=== PATIENT | male | born 1940 | race Caucasian/White ===

== ENCOUNTER 2017-04-17 15:36 | Outpatient (CLI) | payer OTHER | END 2017-04-17 17:20 | disposition home or self-care (01) | LOC: SRD 15:36 | PROVIDERS: ATTEND Internal Medicine | DX: I51.7 Cardiomegaly (principal); I70.0 Atherosclerosis of aorta; Z95.2 Presence of prosthetic heart valve | CPT/HCPCS: 71046-TC ==

== ENCOUNTER 2018-01-06 11:44 | Emergency (ER) | payer OTHER ==
[~2018-01-06] VITALS: Ht 172.7 cm; Wt 97.1 kg
[2018-01-06 11:58] VITALS: BP_SYST 152
[2018-01-06] MEDS ORDERED: ONDANSETRON 4 MG ODT TAB PO ONE (15:45)
[2018-01-06 16:03] LABS: BASOPHILS # (AUTO) 0.1 K/uL (0.0-0.2); HEMOGLOBIN 12.8 g/dL (14.0-18.0); LYMPHOCYTES # (AUTO) 1.2 K/uL (1.0-5.5); MEAN CORPUSCULAR HGB CONC 33 % (32-36); MEAN CORPUSCULAR VOLUME 94 fL (79.0-98.0); MONOCYTES # (AUTO) 0.5 K/uL (0.0-1.0)
[2018-01-06 16:10] LABS: EOSINOPHILS # (AUTO) 0.4 K/uL (0.0-0.4); EOSINOPHILS % (AUTO) 5.8 % (0.0-4.0); HEMATOCRIT 38.5 % (36-54); LYMPHOCYTES % (AUTO) 18.5 % (20.5-51.5); MEAN CORPUSCULAR HEMOGLOBIN 31 pg (27-31); MONOCYTES % (AUTO) 7.3 % (1.7-9.3); NEUTROPHILS # (AUTO) 4.3 K/uL (1.8-7.7); NEUTROPHILS % (AUTO) 67.4 % (40.0-70.0); PLATELET COUNT (AUTO) 113 K/uL (130-430); RED CELL DISTRIBUTION WIDTH 12.9 % (9.0-15.0); WHITE BLOOD COUNT (AUTO) 6.5 K/uL (4.8-10.8)
[2018-01-06 16:15] LABS: ANION GAP 4 (5-15); CALCIUM 9.1 mg/dL (8.4-11.0); CHLORIDE 104 mmol/L (98-107); CREATININE 1.38 mg/dL (0.55-1.30); GLUCOSE 86 mg/dL (70-99); POTASSIUM 3.9 mmol/L (3.5-5.1); SODIUM SERUM 138 mmol/L (136-145); UREA NITROGEN, BLOOD 21 mg/dL (8-21)
[2018-01-06 16:19] LABS: ALANINE AMINOTRANSFERASE 21 U/L (12-78); ALBUMIN 3.9 g/dL (3.4-4.8); ASPARTATE AMINOTRANSFERASE 14 U/L (10-37); LIPASE 279 U/L (73-393); TOTAL BILIRUBIN 1.6 mg/dL (0.0-1.0)
[2018-01-06] MEDS ORDERED: GABA-531 PO (17:00)
[2018-01-06] MEDS ORDERED: TAMS-11 PO (17:00)
[2018-01-06] MEDS ORDERED: METF1000 PO (17:00)
[2018-01-06] MEDS ORDERED: GLIP10TA PO (17:00)
[2018-01-06] MEDS ORDERED: CARV3.1246 PO (17:00)
[2018-01-06] MEDS ORDERED: POTA20TA83 PO (17:00)
[2018-01-06] MEDS ORDERED: SIMV40TA2 PO (17:00)
[2018-01-06] MEDS ORDERED: OLME40TA18 PO (17:00)
[2018-01-06] MEDS ORDERED: SPIR25TA6 PO (17:00)
[2018-01-06] MEDS ORDERED: WARF5TAB2 PO (17:00)
[2018-01-06 17:17] LABS: INR 2.3 (0.80-1.20); PROTHROMBIN TIME 22.1 SECS (9.5-12.5)
[2018-01-06 17:50] VITALS: BP_SYST 134
== END 2018-01-06 18:00 | disposition home or self-care (01) ==
LOC: SED 11:44
DX: R04.2 Hemoptysis (principal); E11.9 Type 2 diabetes mellitus without complications; I10 Essential (primary) hypertension; E78.5 Hyperlipidemia, unspecified; I48.91 Unspecified atrial fibrillation; Z85.46 Personal history of malignant neoplasm of prostate; Z98.890 Other specified postprocedural states; Z87.891 Personal history of nicotine dependence
CPT/HCPCS: 36415; 71045; 80053; 82962; 83690; 84484; 85025; 85610; 85730; 93005; 99285; Q0162

== ENCOUNTER 2018-04-23 12:15 | Outpatient (CLI) | payer OTHER ==
[~2018-04-23 12:15] MED LIST: CARV3.1246 PO; GABA-531 PO; GLIP10TA PO; METF1000 PO; OLME40TA18 PO; POTA20TA83 PO; SIMV40TA2 PO; SPIR25TA6 PO; TAMS-11 PO; WARF5TAB2 PO
== END 2018-04-23 21:31 | disposition home or self-care (01) ==
LOC: SRD 12:15
PROVIDERS: ATTEND Internal Medicine
DX: M17.12 Unilateral primary osteoarthritis, left knee (principal); I70.202 Unspecified atherosclerosis of native arteries of extremities, left leg
CPT/HCPCS: 73564

== ENCOUNTER 2019-08-01 15:36 | Inpatient (IN) | payer OTHER ==
[~2019-08-01] VITALS: Ht 175.3 cm; Wt 93.9 kg
[2019-08-01 15:36] VITALS: BP_SYST 132
[2019-08-01] MEDS ORDERED: NACL 0.9% 1,000 ML IV ONE (16:11)
[2019-08-01] MEDS ORDERED: MORPHINE 4 MG/ML INJ. SYRINGE IVP ONE ×3 (16:15→21:15)
[2019-08-01] MEDS ORDERED: ONDANSETRON HCL 4 MG/2 ML VIAL IVP ONE (16:15)
[2019-08-01 16:56] LABS: BASOPHILS % (AUTO) 0.3 % (0.0-2.0); EOSINOPHILS % (AUTO) 0.3 % (0.0-4.0); HEMATOCRIT 34.4 % (36-54); HEMOGLOBIN 11.2 g/dL (14.0-18.0); LYMPHOCYTES # (AUTO) 0.4 K/uL (1.0-5.5); MEAN CORPUSCULAR HEMOGLOBIN 29 pg (27-31); MEAN CORPUSCULAR HGB CONC 33 % (32-36); MEAN CORPUSCULAR VOLUME 88 fL (79.0-98.0); MONOCYTES # (AUTO) 0.6 K/uL (0.0-1.0); MONOCYTES % (AUTO) 8.9 % (1.7-9.3); NEUTROPHILS # (AUTO) 5.7 K/uL (1.8-7.7); NEUTROPHILS % (AUTO) 84.5 % (40.0-70.0); PLATELET COUNT (AUTO) 119 K/uL (130-430); RED BLOOD CELL COUNT(AUTO) 3.89 MIL/uL (4.2-6.2); RED CELL DISTRIBUTION WIDTH 13.6 % (9.0-15.0); WHITE BLOOD COUNT (AUTO) 6.7 K/uL (4.8-10.8)
[2019-08-01 17:08] LABS: ANION GAP 14 (5-15); CALCIUM 8.1 mg/dL (8.4-11.0); CHLORIDE 102 mmol/L (98-107); CREATININE 1.77 mg/dL (0.55-1.30); GLUCOSE 217 mg/dL (70-99); POTASSIUM 4.1 mmol/L (3.5-5.1); SODIUM SERUM 137 mmol/L (136-145); UREA NITROGEN, BLOOD 50 mg/dL (8-21)
[2019-08-01 17:14] LABS: ALANINE AMINOTRANSFERASE 20 U/L (12-78); ALBUMIN 2.7 g/dL (3.4-4.8); ASPARTATE AMINOTRANSFERASE 14 U/L (10-37); TOTAL BILIRUBIN 0.9 mg/dL (0.0-1.0)
[2019-08-01 17:24] LABS: BILIRUBIN,URINE 1+ (NEGATIVE); BLOOD, URINE 2+ (NEGATIVE); COLOR,URINE YELLOW (YELLOW); GLUCOSE,URINE NEGATIVE (NEGATIVE); KETONES,URINE 1+ (NEGATIVE); LEUKOCYTE ESTERASE ,URINE NEGATIVE (NEGATIVE); NITRITE, URINE NEGATIVE (NEGATIVE); PH,URINE 5.5 (5.0-8.0); PROTEIN URINE 1+ (NEGATIVE)
[2019-08-01 17:26] LABS: CLARITY/URINE SLIGHTLY HAZY (CLEAR)
[2019-08-01] MEDS ORDERED: HYDR25TA4 PO (17:28)
[2019-08-01] MEDS ORDERED: ASA81 PO (17:28)
[2019-08-01] MEDS ORDERED: LOSA100T3 PO (17:28)
[2019-08-01 17:43] LABS: INR > 9.0 (0.80-1.20)
[2019-08-01 17:49] LABS: BACTERIA,URINE FEW /HPF (None Seen)
[2019-08-01 17:50] LABS: COARSE GRANULAR CASTS,URINE 0-10 /LPF (None Seen); MUCUS,URINE 1+ /LPF (None Seen)
[2019-08-01 17:51] LABS: URINE AMORPHOUS URATE 2+ /HPF (None Seen)
[2019-08-01] MEDS ORDERED: ONDANSETRON HCL 4 MG/2 ML VIAL IVP PRN (21:45)
[2019-08-01] MEDS ORDERED: ALBUTEROL SULFATE 0.083% 2.5 MG/3 ML VIAL.NEB INH PRN (21:45)
[2019-08-01] MEDS: cefTRIAXone 1 GM IVPB PREMIX 50 ML IV SCH (22:25)
[2019-08-02 00:41] VITALS: BP_SYST 118
[2019-08-02 07:45] LABS: BASOPHILS % (AUTO) 0.3 % (0.0-2.0); EOSINOPHILS % (AUTO) 0.4 % (0.0-4.0); HEMATOCRIT 31.5 % (36-54); HEMOGLOBIN 10.5 g/dL (14.0-18.0); LYMPHOCYTES # (AUTO) 0.7 K/uL (1.0-5.5); LYMPHOCYTES % (AUTO) 9.5 % (20.5-51.5); MEAN CORPUSCULAR HEMOGLOBIN 29 pg (27-31); MEAN CORPUSCULAR HGB CONC 33 % (32-36); MEAN CORPUSCULAR VOLUME 88 fL (79.0-98.0); MONOCYTES # (AUTO) 0.7 K/uL (0.0-1.0); MONOCYTES % (AUTO) 9.9 % (1.7-9.3); NEUTROPHILS # (AUTO) 5.8 K/uL (1.8-7.7); NEUTROPHILS % (AUTO) 79.9 % (40.0-70.0); PLATELET COUNT (AUTO) 104 K/uL (130-430); RED BLOOD CELL COUNT(AUTO) 3.58 MIL/uL (4.2-6.2); RED CELL DISTRIBUTION WIDTH 14.1 % (9.0-15.0); WHITE BLOOD COUNT (AUTO) 7.3 K/uL (4.8-10.8)
[2019-08-02 08:00] VITALS: BP_SYST 104
[2019-08-02 08:12] LABS: ALANINE AMINOTRANSFERASE 22 U/L (12-78); ALBUMIN 2.5 g/dL (3.4-4.8); ANION GAP 9 (5-15); ASPARTATE AMINOTRANSFERASE 16 U/L (10-37); CALCIUM 8.1 mg/dL (8.4-11.0); CHLORIDE 103 mmol/L (98-107); GLUCOSE 182 mg/dL (70-99); POTASSIUM 4.3 mmol/L (3.5-5.1); SODIUM SERUM 137 mmol/L (136-145); TOTAL BILIRUBIN 0.6 mg/dL (0.0-1.0); UREA NITROGEN, BLOOD 58 mg/dL (8-21)
[2019-08-02 08:20] VITALS: BP_SYST 104
[2019-08-02 09:13] LABS: INR > 9.0 (0.80-1.20)
[2019-08-02] MEDS ORDERED: PHYTONADIONE 10 MG/ML AMP SUBCUT ONE (10:00)
[2019-08-02] MEDS: HYDROCHLOROTHIAZIDE 25 MG TABLET (HCTZ) PO SCH (10:22)
[2019-08-02] MEDS: GABAPENTIN 300 MG CAPSULE PO SCH ×3 (10:22→22:48)
[2019-08-02] MEDS: SPIRONOLACTONE 25 MG TABLET (ALDACTONE) PO SCH (10:23)
[2019-08-02] MEDS: LOSARTAN POTASSIUM 50 MG TABLET (COZAAR) PO SCH (10:24)
[2019-08-02] MEDS: CARVEDILOL 3.125 MG TABLET (COREG) PO SCH ×2 (10:24→21:00)
[2019-08-02] MEDS: INSULIN REGULAR, HUMAN 100 UNITS/ML, 10 ML VIAL (humuLIN R) SUBCUT PRN ×3 (12:14→23:22)
[2019-08-02] MEDS: MORPHINE 4 MG/ML INJ. SYRINGE IVP PRN (12:25)
[2019-08-02 12:39] VITALS: BP_SYST 112
[2019-08-02] MEDS: TAMSULOSIN HCL 0.4 MG CAP PO SCH (17:03)
[2019-08-02] MEDS: SIMVASTATIN 40 MG TABLET PO SCH (17:03)
[2019-08-02 17:08] VITALS: BP_SYST 96
[2019-08-02 20:00] VITALS: BP_SYST 86
[2019-08-02] MEDS: cefTRIAXone 1 GM IVPB PREMIX 50 ML IV SCH (22:49)
[2019-08-03 02:21] VITALS: BP_SYST 132
[2019-08-03] MEDS: INSULIN REGULAR, HUMAN 100 UNITS/ML, 10 ML VIAL (humuLIN R) SUBCUT PRN ×4 (07:20→21:53)
[2019-08-03 08:00] VITALS: BP_SYST 106
[2019-08-03] MEDS: MORPHINE 4 MG/ML INJ. SYRINGE IVP PRN (08:36)
[2019-08-03] MEDS: GABAPENTIN 300 MG CAPSULE PO SCH ×3 (09:48→21:42)
[2019-08-03] MEDS: LOSARTAN POTASSIUM 50 MG TABLET (COZAAR) PO SCH (09:50)
[2019-08-03] MEDS: SPIRONOLACTONE 25 MG TABLET (ALDACTONE) PO SCH (09:50)
[2019-08-03] MEDS: CARVEDILOL 3.125 MG TABLET (COREG) PO SCH ×2 (09:51→21:41)
[2019-08-03] MEDS: HYDROCHLOROTHIAZIDE 25 MG TABLET (HCTZ) PO SCH (09:52)
[2019-08-03 11:58] LABS: BASOPHILS % (AUTO) 0.3 % (0.0-2.0); EOSINOPHILS # (AUTO) 0.1 K/uL (0.0-0.4); EOSINOPHILS % (AUTO) 1.8 % (0.0-4.0); HEMATOCRIT 30.7 % (36-54); HEMOGLOBIN 10.2 g/dL (14.0-18.0); LYMPHOCYTES # (AUTO) 0.6 K/uL (1.0-5.5); MEAN CORPUSCULAR HEMOGLOBIN 30 pg (27-31); MEAN CORPUSCULAR HGB CONC 33 % (32-36); MEAN CORPUSCULAR VOLUME 89 fL (79.0-98.0); MONOCYTES # (AUTO) 0.5 K/uL (0.0-1.0); MONOCYTES % (AUTO) 9.4 % (1.7-9.3); NEUTROPHILS # (AUTO) 4.5 K/uL (1.8-7.7); NEUTROPHILS % (AUTO) 77.5 % (40.0-70.0); PLATELET COUNT (AUTO) 105 K/uL (130-430); RED BLOOD CELL COUNT(AUTO) 3.44 MIL/uL (4.2-6.2); RED CELL DISTRIBUTION WIDTH 13.5 % (9.0-15.0); WHITE BLOOD COUNT (AUTO) 5.8 K/uL (4.8-10.8)
[2019-08-03 12:00] VITALS: BP_SYST 109
[2019-08-03 12:06] LABS: ANION GAP 7 (5-15); CALCIUM 7.8 mg/dL (8.4-11.0); CHLORIDE 98 mmol/L (98-107); CREATININE 2.26 mg/dL (0.55-1.30); GLUCOSE 314 mg/dL (70-99); POTASSIUM 4.4 mmol/L (3.5-5.1); SODIUM SERUM 132 mmol/L (136-145); UREA NITROGEN, BLOOD 68 mg/dL (8-21)
[2019-08-03 12:12] LABS: ALANINE AMINOTRANSFERASE 23 U/L (12-78); ALBUMIN 2.4 g/dL (3.4-4.8); ASPARTATE AMINOTRANSFERASE 21 U/L (10-37); TOTAL BILIRUBIN 0.7 mg/dL (0.0-1.0)
[2019-08-03 12:38] LABS: INR 2.3 (0.80-1.20); PROTHROMBIN TIME 22.5 SECS (9.5-12.5)
[2019-08-03 16:43] VITALS: BP_SYST 100
[2019-08-03] MEDS: TAMSULOSIN HCL 0.4 MG CAP PO SCH (17:43)
[2019-08-03] MEDS: SIMVASTATIN 40 MG TABLET PO SCH (17:43)
[2019-08-03] MEDS: cefTRIAXone 1 GM IVPB PREMIX 50 ML IV SCH (21:40)
[2019-08-04 01:18] VITALS: BP_SYST 100
[2019-08-04] MEDS: INSULIN REGULAR, HUMAN 100 UNITS/ML, 10 ML VIAL (humuLIN R) SUBCUT PRN ×4 (06:26→21:28)
[2019-08-04 07:23] LABS: BASOPHILS % (AUTO) 0.4 % (0.0-2.0); EOSINOPHILS # (AUTO) 0.1 K/uL (0.0-0.4); EOSINOPHILS % (AUTO) 1.7 % (0.0-4.0); HEMATOCRIT 31.9 % (36-54); HEMOGLOBIN 10.7 g/dL (14.0-18.0); LYMPHOCYTES # (AUTO) 0.7 K/uL (1.0-5.5); LYMPHOCYTES % (AUTO) 11.1 % (20.5-51.5); MEAN CORPUSCULAR HEMOGLOBIN 29 pg (27-31); MEAN CORPUSCULAR HGB CONC 34 % (32-36); MEAN CORPUSCULAR VOLUME 87 fL (79.0-98.0); MONOCYTES # (AUTO) 0.6 K/uL (0.0-1.0); MONOCYTES % (AUTO) 9.1 % (1.7-9.3); NEUTROPHILS # (AUTO) 4.9 K/uL (1.8-7.7); NEUTROPHILS % (AUTO) 77.7 % (40.0-70.0); PLATELET COUNT (AUTO) 120 K/uL (130-430); RED BLOOD CELL COUNT(AUTO) 3.65 MIL/uL (4.2-6.2); RED CELL DISTRIBUTION WIDTH 13.7 % (9.0-15.0); WHITE BLOOD COUNT (AUTO) 6.2 K/uL (4.8-10.8)
[2019-08-04 07:35] LABS: INR 1.5 (0.80-1.20); PROTHROMBIN TIME 14.8 SECS (9.5-12.5)
[2019-08-04 07:52] LABS: ALANINE AMINOTRANSFERASE 28 U/L (12-78); ALBUMIN 2.5 g/dL (3.4-4.8); ANION GAP 9 (5-15); ASPARTATE AMINOTRANSFERASE 20 U/L (10-37); CALCIUM 8.1 mg/dL (8.4-11.0); CHLORIDE 98 mmol/L (98-107); CREATININE 1.97 mg/dL (0.55-1.30); GLUCOSE 258 mg/dL (70-99); POTASSIUM 3.9 mmol/L (3.5-5.1); SODIUM SERUM 132 mmol/L (136-145); TOTAL BILIRUBIN 0.7 mg/dL (0.0-1.0); UREA NITROGEN, BLOOD 61 mg/dL (8-21)
[2019-08-04 08:13] LABS: FREE PSA <0.02 ng/mL; PROSTATE SPECIFIC AG TOTAL <0.1 ng/mL (0.0-4.0)
[2019-08-04 08:22] VITALS: BP_SYST 115
[2019-08-04] MEDS: GABAPENTIN 300 MG CAPSULE PO SCH ×3 (09:40→21:24)
[2019-08-04] MEDS: LOSARTAN POTASSIUM 50 MG TABLET (COZAAR) PO SCH (09:41)
[2019-08-04] MEDS: CARVEDILOL 3.125 MG TABLET (COREG) PO SCH ×2 (09:42→22:23)
[2019-08-04] MEDS: SPIRONOLACTONE 25 MG TABLET (ALDACTONE) PO SCH (09:42)
[2019-08-04] MEDS: HYDROCHLOROTHIAZIDE 25 MG TABLET (HCTZ) PO SCH (09:43)
[2019-08-04 10:02] VITALS: BP_SYST 115
[2019-08-04 12:15] VITALS: BP_SYST 120
[2019-08-04] MEDS ORDERED: WARFARIN SODIUM 5 MG TABLET PO ONE (15:45)
[2019-08-04] MEDS: HYDROcodone/ACETAMIN 5-325 MG TAB (NORCO/ VICODIN) PO PRN (16:15)
[2019-08-04] MEDS: SIMVASTATIN 40 MG TABLET PO SCH (16:15)
[2019-08-04] MEDS: TAMSULOSIN HCL 0.4 MG CAP PO SCH (16:16)
[2019-08-04 16:18] VITALS: BP_SYST 117
[2019-08-04 20:00] VITALS: BP_SYST 90
[2019-08-04] MEDS: cefTRIAXone 1 GM IVPB PREMIX 50 ML IV SCH (21:29)
[2019-08-04] MEDS: MORPHINE 4 MG/ML INJ. SYRINGE IVP PRN (22:25)
[2019-08-05 00:58] VITALS: BP_SYST 113
[2019-08-05] MEDS: INSULIN REGULAR, HUMAN 100 UNITS/ML, 10 ML VIAL (humuLIN R) SUBCUT PRN ×4 (06:43→20:54)
[2019-08-05 08:08] VITALS: BP_SYST 93
[2019-08-05] MEDS: HYDROCHLOROTHIAZIDE 25 MG TABLET (HCTZ) PO SCH (09:00)
[2019-08-05] MEDS: LOSARTAN POTASSIUM 50 MG TABLET (COZAAR) PO SCH (09:00)
[2019-08-05] MEDS: SPIRONOLACTONE 25 MG TABLET (ALDACTONE) PO SCH (09:00)
[2019-08-05] MEDS: GABAPENTIN 300 MG CAPSULE PO SCH ×3 (09:05→20:49)
[2019-08-05] MEDS: CARVEDILOL 3.125 MG TABLET (COREG) PO SCH ×2 (09:06→20:49)
[2019-08-05 12:15] VITALS: BP_SYST 99
[2019-08-05 16:13] VITALS: BP_SYST 94
[2019-08-05] MEDS: TAMSULOSIN HCL 0.4 MG CAP PO SCH (17:46)
[2019-08-05] MEDS: SIMVASTATIN 40 MG TABLET PO SCH (17:46)
[2019-08-05 19:50] VITALS: BP_SYST 107
[2019-08-05] MEDS: cefTRIAXone 1 GM IVPB PREMIX 50 ML IV SCH (20:58)
[2019-08-06 00:21] VITALS: BP_SYST 113
[2019-08-06] MEDS: INSULIN REGULAR, HUMAN 100 UNITS/ML, 10 ML VIAL (humuLIN R) SUBCUT PRN ×4 (06:05→20:51)
[2019-08-06 08:00] VITALS: BP_SYST 108
[2019-08-06] MEDS: CARVEDILOL 3.125 MG TABLET (COREG) PO SCH ×2 (08:11→20:42)
[2019-08-06] MEDS: GABAPENTIN 300 MG CAPSULE PO SCH ×3 (08:11→20:41)
[2019-08-06] MEDS: HYDROCHLOROTHIAZIDE 25 MG TABLET (HCTZ) PO SCH (09:00)
[2019-08-06] MEDS: LOSARTAN POTASSIUM 50 MG TABLET (COZAAR) PO SCH (09:00)
[2019-08-06] MEDS: SPIRONOLACTONE 25 MG TABLET (ALDACTONE) PO SCH (09:00)
[2019-08-06] MEDS ORDERED: WARFARIN SODIUM 5 MG TABLET PO ONE (11:45)
[2019-08-06 12:25] LABS: BASOPHILS % (AUTO) 0.3 % (0.0-2.0); EOSINOPHILS # (AUTO) 0.1 K/uL (0.0-0.4); EOSINOPHILS % (AUTO) 2.1 % (0.0-4.0); HEMATOCRIT 31.2 % (36-54); HEMOGLOBIN 10.3 g/dL (14.0-18.0); LYMPHOCYTES # (AUTO) 0.6 K/uL (1.0-5.5); LYMPHOCYTES % (AUTO) 8.6 % (20.5-51.5); MEAN CORPUSCULAR HEMOGLOBIN 29 pg (27-31); MEAN CORPUSCULAR HGB CONC 33 % (32-36); MEAN CORPUSCULAR VOLUME 88 fL (79.0-98.0); MONOCYTES # (AUTO) 0.6 K/uL (0.0-1.0); MONOCYTES % (AUTO) 9.4 % (1.7-9.3); NEUTROPHILS # (AUTO) 5.4 K/uL (1.8-7.7); NEUTROPHILS % (AUTO) 79.6 % (40.0-70.0); PLATELET COUNT (AUTO) 133 K/uL (130-430); RED BLOOD CELL COUNT(AUTO) 3.55 MIL/uL (4.2-6.2); RED CELL DISTRIBUTION WIDTH 13.8 % (9.0-15.0); WHITE BLOOD COUNT (AUTO) 6.8 K/uL (4.8-10.8)
[2019-08-06 12:27] LABS: ANION GAP 7 (5-15); CALCIUM 8.4 mg/dL (8.4-11.0); CHLORIDE 96 mmol/L (98-107); CREATININE 2.29 mg/dL (0.55-1.30); GLUCOSE 342 mg/dL (70-99); POTASSIUM 4.3 mmol/L (3.5-5.1); SODIUM SERUM 129 mmol/L (136-145); UREA NITROGEN, BLOOD 65 mg/dL (8-21)
[2019-08-06 12:29] LABS: INR 1.2 (0.80-1.20)
[2019-08-06 12:34] LABS: ALANINE AMINOTRANSFERASE 29 U/L (12-78); ALBUMIN 2.3 g/dL (3.4-4.8); ASPARTATE AMINOTRANSFERASE 18 U/L (10-37); TOTAL BILIRUBIN 0.6 mg/dL (0.0-1.0)
[2019-08-06 13:01] VITALS: BP_SYST 115
[2019-08-06 16:29] VITALS: BP_SYST 109
[2019-08-06] MEDS: SIMVASTATIN 40 MG TABLET PO SCH (17:20)
[2019-08-06] MEDS: TAMSULOSIN HCL 0.4 MG CAP PO SCH (17:20)
[2019-08-06 19:40] VITALS: BP_SYST 104
[2019-08-06] MEDS: cefTRIAXone 1 GM IVPB PREMIX 50 ML IV SCH (20:48)
[2019-08-07 00:10] VITALS: BP_SYST 108
[2019-08-07] MEDS: INSULIN REGULAR, HUMAN 100 UNITS/ML, 10 ML VIAL (humuLIN R) SUBCUT PRN ×3 (06:33→16:16)
[2019-08-07 07:19] LABS: ANION GAP 12 (5-15); BASOPHILS % (AUTO) 0.3 % (0.0-2.0); CALCIUM 8.6 mg/dL (8.4-11.0); CHLORIDE 96 mmol/L (98-107); CREATININE 1.89 mg/dL (0.55-1.30); EOSINOPHILS # (AUTO) 0.2 K/uL (0.0-0.4); EOSINOPHILS % (AUTO) 2.1 % (0.0-4.0); GLUCOSE 243 mg/dL (70-99); HEMATOCRIT 32.6 % (36-54); HEMOGLOBIN 10.9 g/dL (14.0-18.0); LYMPHOCYTES # (AUTO) 0.8 K/uL (1.0-5.5); LYMPHOCYTES % (AUTO) 10.4 % (20.5-51.5); MEAN CORPUSCULAR HEMOGLOBIN 29 pg (27-31); MEAN CORPUSCULAR HGB CONC 34 % (32-36); MEAN CORPUSCULAR VOLUME 87 fL (79.0-98.0); MONOCYTES # (AUTO) 0.6 K/uL (0.0-1.0); MONOCYTES % (AUTO) 7.3 % (1.7-9.3); NEUTROPHILS # (AUTO) 6.4 K/uL (1.8-7.7); NEUTROPHILS % (AUTO) 79.9 % (40.0-70.0); PLATELET COUNT (AUTO) 163 K/uL (130-430); POTASSIUM 4.3 mmol/L (3.5-5.1); RED BLOOD CELL COUNT(AUTO) 3.75 MIL/uL (4.2-6.2); RED CELL DISTRIBUTION WIDTH 13.9 % (9.0-15.0); SODIUM SERUM 133 mmol/L (136-145); UREA NITROGEN, BLOOD 56 mg/dL (8-21)
[2019-08-07 07:22] LABS: INR 1.2 (0.80-1.20); PROTHROMBIN TIME 12.3 SECS (9.5-12.5)
[2019-08-07 07:25] LABS: ALANINE AMINOTRANSFERASE 36 U/L (12-78); ALBUMIN 2.5 g/dL (3.4-4.8); ASPARTATE AMINOTRANSFERASE 21 U/L (10-37); TOTAL BILIRUBIN 0.6 mg/dL (0.0-1.0)
[2019-08-07 08:00] VITALS: BP_SYST 123
[2019-08-07] MEDS: LOSARTAN POTASSIUM 50 MG TABLET (COZAAR) PO SCH (09:18)
[2019-08-07] MEDS: GABAPENTIN 300 MG CAPSULE PO SCH ×2 (09:19→14:59)
[2019-08-07] MEDS: CARVEDILOL 3.125 MG TABLET (COREG) PO SCH (09:20)
[2019-08-07] MEDS: HYDROCHLOROTHIAZIDE 25 MG TABLET (HCTZ) PO SCH (09:21)
[2019-08-07] MEDS: SPIRONOLACTONE 25 MG TABLET (ALDACTONE) PO SCH (09:22)
[2019-08-07] MEDS: HYDROcodone/ACETAMIN 5-325 MG TAB (NORCO/ VICODIN) PO PRN ×2 (09:22→16:14)
[2019-08-07 09:33] VITALS: BP_SYST 123
[2019-08-07] MEDS ORDERED: WARFARIN SODIUM 5 MG TABLET PO ONE (11:30)
[2019-08-07] MEDS ORDERED: HEPARIN SODIUM,PORCINE 3000 UNITS/0.6 ML BOLUS IVP PRN (11:45)
[2019-08-07] MEDS ORDERED: HEPARIN SODIUM,PORCINE 5000 UNITS/ML VIAL IVP ONE (11:45)
[2019-08-07] MEDS ORDERED: HEPARIN SODIUM,PORCINE 2000 UNITS/0.4 ML BOLUS IVP PRN (11:45)
[2019-08-07 12:00] VITALS: BP_SYST 105
[2019-08-07] MEDS ORDERED: HEPARIN 25,000 UNITS/D5W 250ML 250 ML IV PRN (12:00)
[2019-08-07] MEDS: SIMVASTATIN 40 MG TABLET PO SCH (16:12)
[2019-08-07] MEDS: TAMSULOSIN HCL 0.4 MG CAP PO SCH (16:12)
[2019-08-07 16:47] VITALS: BP_SYST 105
[2019-08-07 18:06] VITALS: BP_SYST 105
== END 2019-08-07 18:25 | DRG 551 ==
LOC: SED 15:36 → SMU 18:02 → STU 08-02 06:31
PROVIDERS: ADMIT Internal Medicine Hospice and Palliative Medicine; ATTEND Internal Medicine Hospice and Palliative Medicine
DX: M51.16 Intervertebral disc disorders with radiculopathy, lumbar region (principal); N17.0 Acute kidney failure with tubular necrosis; N39.0 Urinary tract infection, site not specified; D68.9 Coagulation defect, unspecified; I48.21 Permanent atrial fibrillation; N17.9 Acute kidney failure, unspecified; I10 Essential (primary) hypertension; E11.9 Type 2 diabetes mellitus without complications; N40.0 Benign prostatic hyperplasia without lower urinary tract symptoms; E66.9 Obesity, unspecified; E78.5 Hyperlipidemia, unspecified; G89.29 Other chronic pain; I70.0 Atherosclerosis of aorta; K59.00 Constipation, unspecified; Z85.46 Personal history of malignant neoplasm of prostate; Z79.01 Long term (current) use of anticoagulants; Z79.82 Long term (current) use of aspirin; Z95.1 Presence of aortocoronary bypass graft; Z79.899 Other long term (current) drug therapy; Z88.8 Allergy status to other drugs, medicaments and biological substances; Z95.3 Presence of xenogenic heart valve
CPT/HCPCS: 36415; 71045; 72100-TC; 72148; 74018; 76770; 78306; 80053; 81000-TC; 82962; 84153; 84484; 85025; 85610-TC; 85730-TC; 93005; 96374; 96375; 96376; 97110-GP; 97530-GP; 99285; A9503; G0378; J0696; J1644; J1815; J2270; J2405; J3430; J7050; U0003-CS

== ENCOUNTER 2019-09-01 17:01 | Emergency (ER) | payer OTHER ==
[~2019-09-01] VITALS: Ht 180.3 cm; Wt 72.6 kg
[~2019-09-01 17:01] MED LIST changes: +ASA81 PO; +HYDR25TA4 PO; +LOSA100T3 PO; -METF1000 PO; -OLME40TA18 PO
[2019-09-01 17:10] VITALS: BP_SYST 119
--- NOTE | 2019-09-01 17:13 | NUR ---
Patient to ER bed 03 to gown for evaluation. Side rails up.
[2019-09-01] MEDS ORDERED: MORPHINE 4 MG/ML INJ. SYRINGE IM ONE (17:15)
--- NOTE | 2019-09-01 17:15 | NUR ---
Patient presents to ER C/O back pain. Patient [facility] BLS from [facility] for back pain 09/15. 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 Patient states he has back pain and weakness.
--- NOTE | 2019-09-01 17:20 | NUR ---
ER Dr. Be at bedside examining patient.
[2019-09-01 17:43] LABS: BILIRUBIN,URINE NEGATIVE (NEGATIVE); BLOOD, URINE NEGATIVE (NEGATIVE); CLARITY/URINE CLEAR (CLEAR); COLOR,URINE YELLOW (YELLOW); GLUCOSE,URINE NEGATIVE (NEGATIVE); KETONES,URINE NEGATIVE (NEGATIVE); LEUKOCYTE ESTERASE ,URINE NEGATIVE (NEGATIVE); NITRITE, URINE NEGATIVE (NEGATIVE); PH,URINE 5.5 (5.0-8.0); PROTEIN URINE NEGATIVE (NEGATIVE)
[2019-09-01 18:02] LABS: BASOPHILS % (AUTO) 0.2 % (0.0-2.0); EOSINOPHILS # (AUTO) 0.2 K/uL (0.0-0.4); EOSINOPHILS % (AUTO) 3.4 % (0.0-4.0); HEMATOCRIT 30.3 % (36-54); HEMOGLOBIN 9.9 g/dL (14.0-18.0); LYMPHOCYTES % (AUTO) 17.9 % (20.5-51.5); MEAN CORPUSCULAR HEMOGLOBIN 29 pg (27-31); MEAN CORPUSCULAR HGB CONC 33 % (32-36); MEAN CORPUSCULAR VOLUME 88 fL (79.0-98.0); MONOCYTES # (AUTO) 0.5 K/uL (0.0-1.0); MONOCYTES % (AUTO) 10.1 % (1.7-9.3); NEUTROPHILS # (AUTO) 3.7 K/uL (1.8-7.7); NEUTROPHILS % (AUTO) 68.4 % (40.0-70.0); PLATELET COUNT (AUTO) 98 K/uL (130-430); RED BLOOD CELL COUNT(AUTO) 3.43 MIL/uL (4.2-6.2); RED CELL DISTRIBUTION WIDTH 14.9 % (9.0-15.0); WHITE BLOOD COUNT (AUTO) 5.4 K/uL (4.8-10.8)
[2019-09-01 18:13] LABS: ANION GAP 8 (5-15); CALCIUM 8.6 mg/dL (8.4-11.0); CHLORIDE 100 mmol/L (98-107); CREATININE 1.81 mg/dL (0.55-1.30); GLUCOSE 127 mg/dL (70-99); POTASSIUM 4.8 mmol/L (3.5-5.1); SODIUM SERUM 133 mmol/L (136-145); UREA NITROGEN, BLOOD 43 mg/dL (8-21)
[2019-09-01 18:25] LABS: ALANINE AMINOTRANSFERASE 21 U/L (12-78); ALBUMIN 2.4 g/dL (3.4-4.8); ASPARTATE AMINOTRANSFERASE 18 U/L (10-37); TOTAL BILIRUBIN 0.9 mg/dL (0.0-1.0)
[2019-09-01 18:53] VITALS: BP_SYST 118
--- NOTE | 2019-09-01 18:53 | NUR ---
Patient given written and verbal discharge instructions and verbalizes understanding. ER MD discussed with patient the results and treatment provided. Patient in stable condition. ID arm band removed. no Rx given. Patient educated on pain management and to follow up with PMD. Pain Scale 3/10 . Opportunity for questions provided and answered. Medication side effect fact sheet provided.
[2019-09-02] MEDS ORDERED: ACET325T53 PO (15:46)
[2019-09-02] MEDS ORDERED: ASCO500T20 PO (15:46)
[2019-09-02] MEDS ORDERED: ASPI-1153 PO (15:46)
[2019-09-02] MEDS ORDERED: WARF7.5T2 PO (15:49)
[2019-09-02] MEDS ORDERED: DOCU-144 PO (15:49)
[2019-09-02] MEDS ORDERED: TAMS-11 PO (15:49)
[2019-09-02] MEDS ORDERED: LACT10SO7 PO (15:49)
[2019-09-02] MEDS ORDERED: ZINC220T4 PO (15:50)
[2019-09-02] MEDS ORDERED: LIDOCAINE PATCH (15:54)
[2019-09-02] MEDS ORDERED: POLY17PO4 PO (15:54)
[2019-09-02] MEDS ORDERED: SSNOVOLOG SUBCUT (15:54)
[2019-09-02] MEDS ORDERED: HYDR-4272 PO ×2 (15:54)
[2019-09-02] MEDS ORDERED: MULT-1117 PO (15:54)
[2019-09-02] MEDS ORDERED: SENN8.6T19 PO (15:54)
== END 2019-09-01 18:53 | disposition short-term general hospital (02) ==
LOC: SED 17:01
DX: M54.89 Other dorsalgia (principal)
CPT/HCPCS: 36415; 71045; 80053; 81003; 84484; 85025; 96372; 99285; J2270

== ENCOUNTER 2019-11-21 15:12 | Emergency (ER) | payer OTHER, SELFPAY ==
[~2019-11-21] VITALS: Ht 172.7 cm; Wt 72.6 kg
[~2019-11-21 15:12] MED LIST changes: +ACET325T53 PO; -ASA81 PO; +ASCO500T20 PO; +ASPI-1153 PO; +DOCU-144 PO; +HYDR-4272 PO; -HYDR25TA4 PO; +LACT10SO7 PO; +LIDOCAINE PATCH; +LIDOINT TP; +MULT-1117 PO; +POLY17PO4 PO; +SENN8.6T19 PO; +SSNOVOLOG SUBCUT; -WARF5TAB2 PO; +WARF7.5T2 PO; +ZINC220T4 PO
[2019-11-21 15:30] VITALS: BP_SYST 113
--- NOTE | 2019-11-21 15:34 | NUR ---
Placed in room 6 . Placed on surveillance monitor, blood pressure machine and pulse oximeter. To gown for exam. Side rails up. Report given to JOAN Murray.
--- NOTE | 2019-11-21 15:40 | NUR ---
PT PRESENTS VIA BLS FROM HOME CO LOWER BACK PAIN 8 STARTING THIS MORNING. REPORTS HX OF SLIPPED DISKS, AFIB AND DEMENTIA. AAOX4, V/S STABLE. WILL CONTINUE TO MONITOR FOR SAFETY
--- NOTE | 2019-11-21 15:45 | NUR ---
ER Dr. Ramos at bedside examining patient.
--- NOTE | 2019-11-21 16:00 | NUR ---
Patient is taken to X-ray as ordered by Dr. Kline.
--- NOTE | 2019-11-21 16:10 | NUR ---
Patient is back from X-ray, in stable condition.
--- NOTE | 2019-11-21 17:08 | NUR ---
# 16 FR In and Out catheter with use of sterile technique. Immediate return of ml 30 urine noted. Urine sample collected and sent to lab. Pt tolerated procedure well. Patient unable to toilet self.
[2019-11-21 18:00] LABS: BILIRUBIN,URINE NEGATIVE (NEGATIVE); BLOOD, URINE 3+ (NEGATIVE); CLARITY/URINE SL CLOUDY (CLEAR); COLOR,URINE YELLOW (YELLOW); GLUCOSE,URINE NEGATIVE (NEGATIVE); KETONES,URINE TRACE (NEGATIVE); LEUKOCYTE ESTERASE ,URINE 2+ (NEGATIVE); NITRITE, URINE POSITIVE (NEGATIVE); PROTEIN URINE 2+ (NEGATIVE); UROBILINOGEN,URINE 0.2 (0.2-1.0)
[2019-11-21] MEDS ORDERED: HYDROcodone/ACETAMIN 5-325 MG TAB (NORCO/ VICODIN) PO ONE (18:30)
[2019-11-21] MEDS ORDERED: cefTRIAXone 1 GM in LIDOCAINE 1%, 20 ML MDV 2.1 ML IM ONE (18:45)
[2019-11-21 18:53] LABS: BACTERIA,URINE MANY /HPF (None Seen); CALCIUM PHOSPHATE CRYSTALS,UR None Seen /HPF (None Seen); RBC,URINE 80-100 /HPF (0-3); TRICHOMONAS,URINE None Seen /HPF (None Seen); WBC,URINE >100 /HPF (0-3); YEAST,URINE None Seen /HPF (None Seen)
--- NOTE | 2019-11-21 19:00 | NUR ---
Patient given written and verbal discharge instructions and verbalizes understanding. ER MD discussed with patient the results and treatment provided. Patient in stable condition. ID arm band removed. Rx of KEFLEX given. Patient educated on pain management and to follow up with PMD. Pain Scale 0/10. Opportunity for questions provided and answered. Medication side effect fact sheet provided.
[2019-11-21 19:04] VITALS: BP_SYST 113
== END 2019-11-21 19:04 | disposition home or self-care (01) ==
LOC: SED 15:12
DX: M54.5 Low back pain (principal); I48.91 Unspecified atrial fibrillation; I10 Essential (primary) hypertension; E11.9 Type 2 diabetes mellitus without complications; E78.5 Hyperlipidemia, unspecified; N40.0 Benign prostatic hyperplasia without lower urinary tract symptoms; Z85.46 Personal history of malignant neoplasm of prostate; Z79.899 Other long term (current) drug therapy; Z79.82 Long term (current) use of aspirin; Z88.6 Allergy status to analgesic agent
CPT/HCPCS: 72100; 81000; 87086; 96372; 99284; J0696; J2001; 87186-TC

== ENCOUNTER 2020-03-13 13:30 | Inpatient (IN) | payer OTHER, SELFPAY ==
[~2020-03-13] VITALS: Ht 170.2 cm; Wt 105.2 kg
[~2020-03-13 13:30] MED LIST changes: -ASPI-1153 PO; +ASPI-1393 PO
[2020-03-13 13:36] VITALS: BP_SYST 121
[2020-03-13] MEDS ORDERED: REM15 PO (13:48)
[2020-03-13] MEDS ORDERED: TAMS-11 PO (13:48)
[2020-03-13] MEDS ORDERED: LOSA25TA3 PO (13:48)
[2020-03-13] MEDS ORDERED: BISA-79 PO (13:48)
[2020-03-13] MEDS ORDERED: NEU300 PO (13:48)
[2020-03-13] MEDS ORDERED: CARV3.1246 PO (13:48)
[2020-03-13] MEDS ORDERED: MIRT30TA7 PO (13:48)
[2020-03-13] MEDS ORDERED: FURO-149 PO (13:48)
[2020-03-13] MEDS ORDERED: [UNRECOGNIZED DRUG - CODE] PO (13:48)
[2020-03-13] MEDS ORDERED: POTA8TAB57 PO (13:48)
[2020-03-13 14:43] LABS: BASOPHILS % (AUTO) 0.5 % (0.0-2.0); EOSINOPHILS # (AUTO) 0.2 K/uL (0.0-0.4); EOSINOPHILS % (AUTO) 5.2 % (0.0-4.0); HEMATOCRIT 29.9 % (36-54); HEMOGLOBIN 9.9 g/dL (14.0-18.0); LYMPHOCYTES # (AUTO) 0.6 K/uL (1.0-5.5); LYMPHOCYTES % (AUTO) 14.8 % (20.5-51.5); MEAN CORPUSCULAR HEMOGLOBIN 32 pg (27-31); MEAN CORPUSCULAR HGB CONC 33 % (32-36); MEAN CORPUSCULAR VOLUME 97 fL (79.0-98.0); MONOCYTES # (AUTO) 0.3 K/uL (0.0-1.0); MONOCYTES % (AUTO) 7.5 % (1.7-9.3); NEUTROPHILS # (AUTO) 2.8 K/uL (1.8-7.7); PLATELET COUNT (AUTO) 64 K/uL (130-430); RED BLOOD CELL COUNT(AUTO) 3.09 MIL/uL (4.2-6.2); WHITE BLOOD COUNT (AUTO) 3.9 K/uL (4.8-10.8)
[2020-03-13 15:12] LABS: ALANINE AMINOTRANSFERASE 27 U/L (12-78); ALBUMIN 3.2 g/dL (3.4-4.8); ANION GAP 6 (5-15); ASPARTATE AMINOTRANSFERASE 24 U/L (10-37); CALCIUM 9.2 mg/dL (8.4-11.0); CHLORIDE 104 mmol/L (98-107); CREATININE 2.54 mg/dL (0.55-1.30); GLUCOSE 189 mg/dL (70-99); LACTATE DEHYDROGENASE 227 U/L (85-227); SODIUM SERUM 138 mmol/L (136-145); UREA NITROGEN, BLOOD 51 mg/dL (8-21)
[2020-03-13 15:19] LABS: INR 1.4 (0.80-1.20); PROTHROMBIN TIME 13.9 SECS (9.5-12.5)
[2020-03-13] MEDS ORDERED: ASPIRIN 81 MG TAB.CHEW PO ONE (15:30)
[2020-03-13] MEDS ORDERED: ASPIRIN 81 MG TAB.CHEW ONE (15:47)
[2020-03-13 16:47] LABS: C-REACTIVE PROTEIN QUANT 15.9 mg/dL (0-0.5)
[2020-03-13] MEDS ORDERED: FUROSEMIDE 40 MG/4 ML VIAL IVP ONE (18:30)
[2020-03-13] MEDS ORDERED: ACETAMINOPHEN 325 MG TABLET PO PRN (20:00)
[2020-03-13] MEDS ORDERED: NALOXONE HCL 0.4 MG/ML AMP (NARCAN) IVP PRN (20:00)
[2020-03-13] MEDS ORDERED: HYDROcodone/ACETAMIN 5-325 MG TAB (NORCO/ VICODIN) PO PRN (20:00)
[2020-03-13] MEDS ORDERED: BISACODYL 5 MG TABLET.DR (DULCOLAX) PO SCH (20:15)
[2020-03-13] MEDS ORDERED: MIRTAZAPINE 15 MG TABLET PO PRN (20:15)
[2020-03-13] MEDS ORDERED: AZITHROMYCIN 500 MG/VIAL (ZITHROMAX) IV ONE (20:30)
[2020-03-13] MEDS: AZITHROMYCIN 500 MG in NS 250 ML IV SCH (20:40)
[2020-03-13] MEDS: cefTRIAXone 1 GM IVPB PREMIX 50 ML IV SCH (20:40)
[2020-03-13] MEDS ORDERED: CARVEDILOL 3.125 MG TABLET (COREG) PO SCH (21:00)
[2020-03-13] MEDS ORDERED: GABAPENTIN 300 MG CAPSULE PO SCH (21:00)
[2020-03-13 21:44] VITALS: BP_SYST 102
[2020-03-13 22:09] VITALS: BP_SYST 118
[2020-03-13] MEDS: PANTOPRAZOLE SODIUM 40 MG TAB PO SCH (22:54)
[2020-03-13] MEDS: SIMVASTATIN 40 MG TABLET PO SCH (22:54)
[2020-03-13] MEDS: NORMAL SALINE 5 ML DISP.SYRIN IVF SCH (22:55)
[2020-03-13] MEDS: ALBUTEROL SULFATE 0.083% 2.5 MG/3 ML VIAL.NEB INH SCH (23:10)
[2020-03-14 00:37] VITALS: BP_SYST 118
[2020-03-14] MEDS: ALBUTEROL SULFATE 0.083% 2.5 MG/3 ML VIAL.NEB INH SCH ×5 (03:17→20:25)
[2020-03-14] MEDS: NORMAL SALINE 5 ML DISP.SYRIN IVF SCH ×3 (06:18→22:01)
[2020-03-14 07:10] LABS: INR 1.3 (0.80-1.20); PROTHROMBIN TIME 13.2 SECS (9.5-12.5)
[2020-03-14 07:13] LABS: BASOPHILS % (AUTO) 0.2 % (0.0-2.0); EOSINOPHILS # (AUTO) 0.2 K/uL (0.0-0.4); EOSINOPHILS % (AUTO) 6.5 % (0.0-4.0); HEMATOCRIT 28.2 % (36-54); HEMOGLOBIN 9.5 g/dL (14.0-18.0); LYMPHOCYTES # (AUTO) 0.6 K/uL (1.0-5.5); LYMPHOCYTES % (AUTO) 18.2 % (20.5-51.5); MEAN CORPUSCULAR HEMOGLOBIN 33 pg (27-31); MEAN CORPUSCULAR HGB CONC 34 % (32-36); MEAN CORPUSCULAR VOLUME 97 fL (79.0-98.0); MONOCYTES # (AUTO) 0.2 K/uL (0.0-1.0); MONOCYTES % (AUTO) 6.1 % (1.7-9.3); NEUTROPHILS # (AUTO) 2.4 K/uL (1.8-7.7); PLATELET COUNT (AUTO) 61 K/uL (130-430); RED BLOOD CELL COUNT(AUTO) 2.91 MIL/uL (4.2-6.2); RED CELL DISTRIBUTION WIDTH 16.8 % (9.0-15.0); WHITE BLOOD COUNT (AUTO) 3.5 K/uL (4.8-10.8)
[2020-03-14 07:55] LABS: ALANINE AMINOTRANSFERASE 26 U/L (12-78); ANION GAP 10 (5-15); ASPARTATE AMINOTRANSFERASE 20 U/L (10-37); CALCIUM 8.7 mg/dL (8.4-11.0); CHLORIDE 104 mmol/L (98-107); CREATININE 2.41 mg/dL (0.55-1.30); GLUCOSE 150 mg/dL (70-99); POTASSIUM 3.8 mmol/L (3.5-5.1); SODIUM SERUM 143 mmol/L (136-145); TOTAL BILIRUBIN 2.1 mg/dL (0.0-1.0); UREA NITROGEN, BLOOD 52 mg/dL (8-21)
[2020-03-14 08:10] VITALS: BP_SYST 127
[2020-03-14] MEDS: LIDOCAINE TOPICAL OINT 5%, 35 GM TP SCH (09:00)
[2020-03-14 09:48] LABS: CHOLESTEROL 58 mg/dL (<200); HDL CHOLESTEROL 26 mg/dL (>45); LDL CHOLESTEROL 33 mg/dL (<100); TRIGLYCERIDES 38 mg/dL (30-150)
[2020-03-14] MEDS: TAMSULOSIN HCL 0.4 MG CAP PO SCH (09:51)
[2020-03-14] MEDS: SENNOSIDES 8.6 MG TABLET PO SCH (09:51)
[2020-03-14] MEDS: DOCUSATE SODIUM 100 MG CAPSULE PO SCH ×2 (09:51→22:01)
[2020-03-14] MEDS: ASPIRIN 81 MG TABLET(ECOTRIN) PO SCH (09:52)
[2020-03-14] MEDS: LOSARTAN POTASSIUM 25 MG TABLET PO SCH (09:52)
[2020-03-14] MEDS: FUROSEMIDE 40 MG TABLET PO SCH (09:52)
[2020-03-14] MEDS: PANTOPRAZOLE SODIUM 40 MG TAB PO SCH ×2 (09:53→22:01)
[2020-03-14] MEDS: ASCORBIC ACID 500 MG TABLET PO SCH (09:53)
[2020-03-14] MEDS: SPIRONOLACTONE 25 MG TABLET (ALDACTONE) PO SCH (09:54)
[2020-03-14] MEDS: glipiZIDE XL 5 MG TAB ( GLUCOTROL XL) PO SCH (10:11)
[2020-03-14 11:30] VITALS: BP_SYST 121
[2020-03-14] MEDS: INSULIN REGULAR, HUMAN 100 UNITS/ML, 10 ML VIAL (humuLIN R) SUBCUT PRN (12:07)
[2020-03-14 15:22] VITALS: BP_SYST 121
[2020-03-14] MEDS ORDERED: SIMVASTATIN 40 MG TABLET PO SCH (18:00)
[2020-03-14 20:00] VITALS: BP_SYST 112
[2020-03-14] MEDS: AZITHROMYCIN 500 MG in NS 250 ML IV SCH (20:00)
[2020-03-14] MEDS: cefTRIAXone 1 GM IVPB PREMIX 50 ML IV SCH (20:00)
[2020-03-14] MEDS: GABAPENTIN 300 MG CAPSULE PO SCH (22:00)
[2020-03-14] MEDS: CARVEDILOL 3.125 MG TABLET (COREG) PO SCH (22:00)
[2020-03-14] MEDS: SIMVASTATIN 40 MG TABLET PO SCH (22:01)
[2020-03-15] VITALS: BP_SYST 108
[2020-03-15] MEDS: ALBUTEROL SULFATE 0.083% 2.5 MG/3 ML VIAL.NEB INH SCH ×6 (00:10→19:41)
[2020-03-15] MEDS: NORMAL SALINE 5 ML DISP.SYRIN IVF SCH ×3 (05:56→21:19)
[2020-03-15] MEDS: DOCUSATE SODIUM 100 MG CAPSULE PO SCH ×2 (09:00→21:19)
[2020-03-15] MEDS: PANTOPRAZOLE SODIUM 40 MG TAB PO SCH ×2 (09:00→21:19)
[2020-03-15] MEDS: glipiZIDE XL 5 MG TAB ( GLUCOTROL XL) PO SCH (09:00)
[2020-03-15] MEDS: GABAPENTIN 300 MG CAPSULE PO SCH ×3 (09:00→21:19)
[2020-03-15] MEDS: ASCORBIC ACID 500 MG TABLET PO SCH (09:00)
[2020-03-15] MEDS: SENNOSIDES 8.6 MG TABLET PO SCH (09:00)
[2020-03-15] MEDS: ASPIRIN 81 MG TABLET(ECOTRIN) PO SCH (09:00)
[2020-03-15] MEDS: LOSARTAN POTASSIUM 25 MG TABLET PO SCH (09:00)
[2020-03-15] MEDS: TAMSULOSIN HCL 0.4 MG CAP PO SCH (09:00)
[2020-03-15] MEDS: FUROSEMIDE 40 MG TABLET PO SCH (09:00)
[2020-03-15] MEDS: CARVEDILOL 3.125 MG TABLET (COREG) PO SCH ×2 (12:00→21:19)
[2020-03-15] MEDS: SPIRONOLACTONE 25 MG TABLET (ALDACTONE) PO SCH (12:00)
[2020-03-15 12:15] VITALS: BP_SYST 108
[2020-03-15 16:18] VITALS: BP_SYST 135
[2020-03-15] MEDS: INSULIN REGULAR, HUMAN 100 UNITS/ML, 10 ML VIAL (humuLIN R) SUBCUT PRN (21:19)
[2020-03-15] MEDS: AZITHROMYCIN 500 MG in NS 250 ML IV SCH (21:19)
[2020-03-15] MEDS: SIMVASTATIN 40 MG TABLET PO SCH (21:19)
[2020-03-15] MEDS: cefTRIAXone 1 GM IVPB PREMIX 50 ML IV SCH (21:19)
[2020-03-15] MEDS: LIDOCAINE TOPICAL OINT 5%, 35 GM TP SCH (21:19)
[2020-03-15 21:30] VITALS: BP_SYST 126
[2020-03-16] VITALS: BP_SYST 130
[2020-03-16] MEDS: ALBUTEROL SULFATE 0.083% 2.5 MG/3 ML VIAL.NEB INH SCH ×6 (00:49→23:06)
[2020-03-16] MEDS: NORMAL SALINE 5 ML DISP.SYRIN IVF SCH ×3 (06:55→22:01)
[2020-03-16 08:00] VITALS: BP_SYST 119
[2020-03-16] MEDS: LIDOCAINE TOPICAL OINT 5%, 35 GM TP SCH ×2 (09:00→21:00)
[2020-03-16] MEDS: FUROSEMIDE 40 MG TABLET PO SCH (10:15)
[2020-03-16] MEDS: PANTOPRAZOLE SODIUM 40 MG TAB PO SCH ×2 (10:15→21:47)
[2020-03-16] MEDS: TAMSULOSIN HCL 0.4 MG CAP PO SCH (10:15)
[2020-03-16] MEDS: SENNOSIDES 8.6 MG TABLET PO SCH (10:15)
[2020-03-16] MEDS: ASPIRIN 81 MG TABLET(ECOTRIN) PO SCH (10:15)
[2020-03-16] MEDS: ASCORBIC ACID 500 MG TABLET PO SCH (10:15)
[2020-03-16] MEDS: DOCUSATE SODIUM 100 MG CAPSULE PO SCH ×2 (10:15→21:47)
[2020-03-16] MEDS: glipiZIDE XL 5 MG TAB ( GLUCOTROL XL) PO SCH (10:15)
[2020-03-16] MEDS: GABAPENTIN 300 MG CAPSULE PO SCH ×3 (10:15→21:47)
[2020-03-16] MEDS: LOSARTAN POTASSIUM 25 MG TABLET PO SCH (10:16)
[2020-03-16] MEDS: SPIRONOLACTONE 25 MG TABLET (ALDACTONE) PO SCH (10:16)
[2020-03-16] MEDS: CARVEDILOL 3.125 MG TABLET (COREG) PO SCH ×2 (10:17→21:47)
[2020-03-16 12:00] VITALS: BP_SYST 102
[2020-03-16 12:37] LABS: CALCIUM 9.1 mg/dL (8.4-11.0); CHLORIDE 106 mmol/L (98-107); GLUCOSE 284 mg/dL (70-99); POTASSIUM 3.6 mmol/L (3.5-5.1); SODIUM SERUM 145 mmol/L (136-145); UREA NITROGEN, BLOOD 48 mg/dL (8-21)
[2020-03-16 12:42] LABS: ANION GAP 9 (5-15); CREATININE 2.14 mg/dL (0.55-1.30)
[2020-03-16 13:08] VITALS: BP_SYST 119
[2020-03-16 16:00] VITALS: BP_SYST 118
[2020-03-16 20:00] VITALS: BP_SYST 111
[2020-03-16] MEDS ORDERED: FUROSEMIDE 40 MG/4 ML VIAL IVP ONE (21:30)
[2020-03-16] MEDS: FUROSEMIDE 40 MG/4 ML VIAL IVP SCH (21:30)
[2020-03-16] MEDS: SIMVASTATIN 40 MG TABLET PO SCH (21:47)
[2020-03-16] MEDS: cefTRIAXone 1 GM IVPB PREMIX 50 ML IV SCH (21:48)
[2020-03-16] MEDS: AZITHROMYCIN 500 MG in NS 250 ML IV SCH (22:33)
[2020-03-17] VITALS: BP_SYST 103
[2020-03-17] MEDS: ALBUTEROL SULFATE 0.083% 2.5 MG/3 ML VIAL.NEB INH SCH ×4 (03:26→23:02)
[2020-03-17 06:40] LABS: BASOPHILS % (AUTO) 0.5 % (0.0-2.0); EOSINOPHILS # (AUTO) 0.2 K/uL (0.0-0.4); EOSINOPHILS % (AUTO) 6.6 % (0.0-4.0); HEMATOCRIT 28.6 % (36-54); HEMOGLOBIN 9.6 g/dL (14.0-18.0); LYMPHOCYTES # (AUTO) 0.6 K/uL (1.0-5.5); LYMPHOCYTES % (AUTO) 16.6 % (20.5-51.5); MEAN CORPUSCULAR HEMOGLOBIN 32 pg (27-31); MEAN CORPUSCULAR HGB CONC 34 % (32-36); MEAN CORPUSCULAR VOLUME 96 fL (79.0-98.0); MONOCYTES # (AUTO) 0.3 K/uL (0.0-1.0); MONOCYTES % (AUTO) 7.7 % (1.7-9.3); NEUTROPHILS # (AUTO) 2.4 K/uL (1.8-7.7); NEUTROPHILS % (AUTO) 68.6 % (40.0-70.0); PLATELET COUNT (AUTO) 62 K/uL (130-430); RED BLOOD CELL COUNT(AUTO) 2.99 MIL/uL (4.2-6.2); RED CELL DISTRIBUTION WIDTH 15.7 % (9.0-15.0); WHITE BLOOD COUNT (AUTO) 3.5 K/uL (4.8-10.8)
[2020-03-17] MEDS: NORMAL SALINE 5 ML DISP.SYRIN IVF SCH ×3 (06:42→23:27)
[2020-03-17] MEDS: FUROSEMIDE 40 MG/4 ML VIAL IVP SCH ×2 (06:45→18:00)
[2020-03-17 08:37] LABS: ALANINE AMINOTRANSFERASE 28 U/L (12-78); ALBUMIN 2.9 g/dL (3.4-4.8); ANION GAP 6 (5-15); ASPARTATE AMINOTRANSFERASE 15 U/L (10-37); CALCIUM 8.9 mg/dL (8.4-11.0); CHLORIDE 106 mmol/L (98-107); GLUCOSE 92 mg/dL (70-99); POTASSIUM 3.4 mmol/L (3.5-5.1); SODIUM SERUM 145 mmol/L (136-145); UREA NITROGEN, BLOOD 44 mg/dL (8-21)
[2020-03-17] MEDS ORDERED: glipiZIDE XL 5 MG TAB ( GLUCOTROL XL) PO ONE (08:47)
[2020-03-17] MEDS: LIDOCAINE TOPICAL OINT 5%, 35 GM TP SCH ×2 (09:00→21:00)
[2020-03-17] MEDS: CARVEDILOL 3.125 MG TABLET (COREG) PO SCH ×2 (09:00→22:41)
[2020-03-17] MEDS: LOSARTAN POTASSIUM 25 MG TABLET PO SCH (09:00)
[2020-03-17 09:09] LABS: CREATININE 1.96 mg/dL (0.55-1.30)
[2020-03-17 09:17] VITALS: BP_SYST 97
[2020-03-17] MEDS: glipiZIDE XL 5 MG TAB ( GLUCOTROL XL) PO SCH (09:20)
[2020-03-17] MEDS: SENNOSIDES 8.6 MG TABLET PO SCH (09:21)
[2020-03-17] MEDS: TAMSULOSIN HCL 0.4 MG CAP PO SCH (09:21)
[2020-03-17] MEDS: ASCORBIC ACID 500 MG TABLET PO SCH (09:22)
[2020-03-17] MEDS: GABAPENTIN 300 MG CAPSULE PO SCH ×3 (09:22→22:42)
[2020-03-17] MEDS: ASPIRIN 81 MG TABLET(ECOTRIN) PO SCH (09:22)
[2020-03-17] MEDS: DOCUSATE SODIUM 100 MG CAPSULE PO SCH ×2 (09:22→22:42)
[2020-03-17] MEDS: PANTOPRAZOLE SODIUM 40 MG TAB PO SCH ×2 (09:22→22:42)
[2020-03-17] MEDS: SPIRONOLACTONE 25 MG TABLET (ALDACTONE) PO SCH (09:24)
[2020-03-17 12:30] VITALS: BP_SYST 104
[2020-03-17 15:37] VITALS: BP_SYST 96
[2020-03-17 20:00] VITALS: BP_SYST 110
[2020-03-17] MEDS: cefTRIAXone 1 GM IVPB PREMIX 50 ML IV SCH (20:19)
[2020-03-17] MEDS: SIMVASTATIN 40 MG TABLET PO SCH (22:42)
[2020-03-17] MEDS: AZITHROMYCIN 500 MG in NS 250 ML IV SCH (22:43)
[2020-03-18] VITALS: BP_SYST 101
[2020-03-18] MEDS: ALBUTEROL SULFATE 0.083% 2.5 MG/3 ML VIAL.NEB INH SCH ×3 (04:45→21:15)
[2020-03-18] MEDS: FUROSEMIDE 40 MG/4 ML VIAL IVP SCH ×2 (06:00→18:22)
[2020-03-18 06:40] LABS: BASOPHILS % (AUTO) 0.6 % (0.0-2.0); EOSINOPHILS # (AUTO) 0.2 K/uL (0.0-0.4); EOSINOPHILS % (AUTO) 6.7 % (0.0-4.0); HEMATOCRIT 28.2 % (36-54); HEMOGLOBIN 9.4 g/dL (14.0-18.0); LYMPHOCYTES # (AUTO) 0.5 K/uL (1.0-5.5); LYMPHOCYTES % (AUTO) 16.1 % (20.5-51.5); MEAN CORPUSCULAR HEMOGLOBIN 32 pg (27-31); MEAN CORPUSCULAR HGB CONC 33 % (32-36); MEAN CORPUSCULAR VOLUME 96 fL (79.0-98.0); MONOCYTES # (AUTO) 0.3 K/uL (0.0-1.0); MONOCYTES % (AUTO) 8.4 % (1.7-9.3); NEUTROPHILS # (AUTO) 2.3 K/uL (1.8-7.7); NEUTROPHILS % (AUTO) 68.2 % (40.0-70.0); PLATELET COUNT (AUTO) 61 K/uL (130-430); RED BLOOD CELL COUNT(AUTO) 2.95 MIL/uL (4.2-6.2); WHITE BLOOD COUNT (AUTO) 3.4 K/uL (4.8-10.8)
[2020-03-18] MEDS: NORMAL SALINE 5 ML DISP.SYRIN IVF SCH ×3 (06:54→23:29)
[2020-03-18 07:52] LABS: ALANINE AMINOTRANSFERASE 26 U/L (12-78); ALBUMIN 2.8 g/dL (3.4-4.8); ANION GAP 9 (5-15); ASPARTATE AMINOTRANSFERASE 20 U/L (10-37); CALCIUM 9.3 mg/dL (8.4-11.0); CHLORIDE 106 mmol/L (98-107); CREATININE 1.68 mg/dL (0.55-1.30); GLUCOSE 203 mg/dL (70-99); POTASSIUM 3.6 mmol/L (3.5-5.1); SODIUM SERUM 145 mmol/L (136-145); UREA NITROGEN, BLOOD 44 mg/dL (8-21)
[2020-03-18 08:06] LABS: FREE PSA <0.02 ng/mL; PROSTATE SPECIFIC AG TOTAL <0.1 ng/mL (0.0-4.0)
[2020-03-18 08:30] VITALS: BP_SYST 99
[2020-03-18] MEDS: LIDOCAINE TOPICAL OINT 5%, 35 GM TP SCH ×2 (09:00→21:00)
[2020-03-18] MEDS: LOSARTAN POTASSIUM 25 MG TABLET PO SCH (09:00)
[2020-03-18] MEDS: glipiZIDE XL 5 MG TAB ( GLUCOTROL XL) PO SCH (09:39)
[2020-03-18] MEDS: TAMSULOSIN HCL 0.4 MG CAP PO SCH (09:39)
[2020-03-18] MEDS: SENNOSIDES 8.6 MG TABLET PO SCH (09:39)
[2020-03-18] MEDS: ASCORBIC ACID 500 MG TABLET PO SCH (09:40)
[2020-03-18] MEDS: ASPIRIN 81 MG TABLET(ECOTRIN) PO SCH (09:40)
[2020-03-18] MEDS: CARVEDILOL 3.125 MG TABLET (COREG) PO SCH ×2 (09:40→20:34)
[2020-03-18] MEDS: PANTOPRAZOLE SODIUM 40 MG TAB PO SCH ×2 (09:41→20:32)
[2020-03-18] MEDS: GABAPENTIN 300 MG CAPSULE PO SCH ×3 (09:41→20:32)
[2020-03-18] MEDS: DOCUSATE SODIUM 100 MG CAPSULE PO SCH ×2 (09:41→20:32)
[2020-03-18] MEDS: SPIRONOLACTONE 25 MG TABLET (ALDACTONE) PO SCH (09:41)
[2020-03-18 11:21] VITALS: BP_SYST 126
[2020-03-18 16:30] VITALS: BP_SYST 117
[2020-03-18] MEDS ORDERED: FUROSEMIDE 40 MG/4 ML VIAL ONE (18:17)
[2020-03-18 20:00] VITALS: BP_SYST 123
[2020-03-18] MEDS: SIMVASTATIN 40 MG TABLET PO SCH (20:32)
[2020-03-18] MEDS: cefTRIAXone 1 GM IVPB PREMIX 50 ML IV SCH (20:34)
[2020-03-19] VITALS: BP_SYST 104
[2020-03-19] MEDS: ALBUTEROL SULFATE 0.083% 2.5 MG/3 ML VIAL.NEB INH SCH ×4 (03:37→15:58)
[2020-03-19] MEDS ORDERED: FUROSEMIDE 40 MG/4 ML VIAL ONE (06:24)
[2020-03-19] MEDS: FUROSEMIDE 40 MG/4 ML VIAL IVP SCH (06:27)
[2020-03-19] MEDS: NORMAL SALINE 5 ML DISP.SYRIN IVF SCH ×2 (06:28→17:44)
[2020-03-19 07:58] LABS: ANION GAP 9 (5-15); CALCIUM 9.2 mg/dL (8.4-11.0); CHLORIDE 106 mmol/L (98-107); CREATININE 2.31 mg/dL (0.55-1.30); GLUCOSE 150 mg/dL (70-99); POTASSIUM 3.5 mmol/L (3.5-5.1); SODIUM SERUM 145 mmol/L (136-145); UREA NITROGEN, BLOOD 41 mg/dL (8-21)
[2020-03-19 08:00] VITALS: BP_SYST 129
[2020-03-19] MEDS: DOCUSATE SODIUM 100 MG CAPSULE PO SCH (09:00)
[2020-03-19] MEDS: LIDOCAINE TOPICAL OINT 5%, 35 GM TP SCH (09:00)
[2020-03-19] MEDS: ASPIRIN 81 MG TABLET(ECOTRIN) PO SCH (10:21)
[2020-03-19] MEDS: SENNOSIDES 8.6 MG TABLET PO SCH (10:22)
[2020-03-19] MEDS: SPIRONOLACTONE 25 MG TABLET (ALDACTONE) PO SCH (10:22)
[2020-03-19] MEDS: glipiZIDE XL 5 MG TAB ( GLUCOTROL XL) PO SCH (10:22)
[2020-03-19] MEDS: LOSARTAN POTASSIUM 25 MG TABLET PO SCH (10:22)
[2020-03-19] MEDS: CARVEDILOL 3.125 MG TABLET (COREG) PO SCH (10:23)
[2020-03-19] MEDS: TAMSULOSIN HCL 0.4 MG CAP PO SCH (10:23)
[2020-03-19] MEDS: GABAPENTIN 300 MG CAPSULE PO SCH ×2 (10:24→17:43)
[2020-03-19] MEDS: PANTOPRAZOLE SODIUM 40 MG TAB PO SCH (10:24)
[2020-03-19] MEDS: ASCORBIC ACID 500 MG TABLET PO SCH (10:30)
[2020-03-19] MEDS ORDERED: APIX5TAB PO (10:58)
[2020-03-19] MEDS ORDERED: APIXABAN 2.5 MG TABLET PO SCH (11:00)
[2020-03-19 18:21] VITALS: BP_SYST 129
[2020-03-19 18:31] VITALS: BP_SYST 129
[2020-03-20] MEDS ORDERED: FUROSEMIDE 40 MG TABLET PO SCH (09:00)
== END 2020-03-19 18:47 | disposition home health service (06) | DRG 291 ==
LOC: SED 13:30 → STU 19:19
PROVIDERS: ADMIT Internal Medicine Hospice and Palliative Medicine; ATTEND Internal Medicine Hospice and Palliative Medicine
DX: I13.0 Hypertensive heart and chronic kidney disease with heart failure and stage 1 through stage 4 chronic kidney disease, or unspecified chronic kidney disease (principal); J96.01 Acute respiratory failure with hypoxia; J18.9 Pneumonia, unspecified organism; I50.43 Acute on chronic combined systolic (congestive) and diastolic (congestive) heart failure; R04.2 Hemoptysis; N17.9 Acute kidney failure, unspecified; I48.20 Chronic atrial fibrillation, unspecified; D64.9 Anemia, unspecified; E78.5 Hyperlipidemia, unspecified; G89.29 Other chronic pain; M54.9 Dorsalgia, unspecified; D69.6 Thrombocytopenia, unspecified; N18.30 Chronic kidney disease, stage 3 unspecified; E11.22 Type 2 diabetes mellitus with diabetic chronic kidney disease; E11.42 Type 2 diabetes mellitus with diabetic polyneuropathy; Z20.822 Contact with and (suspected) exposure to COVID-19; N40.0 Benign prostatic hyperplasia without lower urinary tract symptoms; Z79.01 Long term (current) use of anticoagulants; Z95.2 Presence of prosthetic heart valve; Z88.8 Allergy status to other drugs, medicaments and biological substances; Z79.899 Other long term (current) drug therapy
CPT/HCPCS: 36415; 36600; 71045; 76770; 78580-TC; 80048; 80053; 80061; 82272; 82550-TC; 82728; 82803-TC; 82962; 83615-TC; 83880; 84153; 84484; 85025; 85379; 85384-TC; 85610-TC; 85730-TC; 86140; 86886; 86900; 86901; 87040-TC; 93005; 93306; 93970; 94640; 94760; 96365; 96375; 97110-GP; 97116-GP; 97530-GP; 99285; A9540; G0378; J0456; J0696; J1940; J7050; J7613; U0003

== ENCOUNTER 2020-04-25 16:36 | Inpatient (IN) | payer OTHER, SELFPAY ==
[~2020-04-25] VITALS: Ht 170.2 cm; Wt 94.3 kg
[2020-04-25 16:36] VITALS: BP_SYST 152
[~2020-04-25 16:36] MED LIST changes: +APIX5TAB PO; -ASPI-1393 PO; +BISA-79 PO; +FURO-149 PO; -GABA-531 PO; -LOSA100T3 PO; +MIRT30TA7 PO; +NEU300 PO; -WARF7.5T2 PO
[2020-04-25 18:00] LABS: BASOPHILS % (AUTO) 0.4 % (0.0-2.0); EOSINOPHILS # (AUTO) 0.1 K/uL (0.0-0.4); EOSINOPHILS % (AUTO) 5.1 % (0.0-4.0); HEMATOCRIT 30.7 % (36-54); HEMOGLOBIN 10.1 g/dL (14.0-18.0); LYMPHOCYTES # (AUTO) 0.6 K/uL (1.0-5.5); LYMPHOCYTES % (AUTO) 19.6 % (20.5-51.5); MEAN CORPUSCULAR HEMOGLOBIN 31 pg (27-31); MEAN CORPUSCULAR HGB CONC 33 % (32-36); MEAN CORPUSCULAR VOLUME 95 fL (79.0-98.0); MONOCYTES # (AUTO) 0.2 K/uL (0.0-1.0); MONOCYTES % (AUTO) 7.6 % (1.7-9.3); NEUTROPHILS % (AUTO) 67.3 % (40.0-70.0); PLATELET COUNT (AUTO) 68 K/uL (130-430); RED BLOOD CELL COUNT(AUTO) 3.23 MIL/uL (4.2-6.2); RED CELL DISTRIBUTION WIDTH 16.9 % (9.0-15.0)
[2020-04-25 18:32] LABS: ANION GAP 7 (5-15); CALCIUM 8.7 mg/dL (8.4-11.0); CHLORIDE 102 mmol/L (98-107); CREATININE 1.91 mg/dL (0.55-1.30); GLUCOSE 217 mg/dL (70-99); POTASSIUM 3.7 mmol/L (3.5-5.1); SODIUM SERUM 139 mmol/L (136-145); UREA NITROGEN, BLOOD 22 mg/dL (8-21)
[2020-04-25 18:39] LABS: ALANINE AMINOTRANSFERASE 23 U/L (12-78); ALBUMIN 3.1 g/dL (3.4-4.8); ASPARTATE AMINOTRANSFERASE 19 U/L (10-37); TOTAL BILIRUBIN 2.4 mg/dL (0.0-1.0)
[2020-04-25 18:51] LABS: INR 1.3 (0.80-1.20); PROTHROMBIN TIME 13.5 SECS (9.5-12.5)
[2020-04-25 18:56] LABS: BILIRUBIN,URINE NEGATIVE (NEGATIVE); BLOOD, URINE NEGATIVE (NEGATIVE); CLARITY/URINE CLEAR (CLEAR); GLUCOSE,URINE 2+ (NEGATIVE); KETONES,URINE NEGATIVE (NEGATIVE); LEUKOCYTE ESTERASE ,URINE NEGATIVE (NEGATIVE); NITRITE, URINE NEGATIVE (NEGATIVE); PH,URINE 5.5 (5.0-8.0); PROTEIN URINE 1+ (NEGATIVE); UROBILINOGEN,URINE 0.2 (0.2-1.0)
[2020-04-25 19:18] LABS: COLOR,URINE AMBER (YELLOW)
[2020-04-25 19:37] LABS: BACTERIA,URINE FEW /HPF (None Seen); FINE GRANULAR CASTS,URINE 0-10 /LPF (None Seen); MUCUS,URINE None Seen /LPF (None Seen); RBC,URINE NONE SEEN /HPF (0-3); URIC ACID CRYSTALS,URINE 0-10 /HPF (None Seen)
[2020-04-25 20:00] VITALS: BP_SYST 123
[2020-04-25] MEDS ORDERED: ACETAMINOPHEN 325 MG TABLET PO PRN (21:15)
[2020-04-25] MEDS ORDERED: ALBUTEROL SULFATE 0.083% 2.5 MG/3 ML VIAL.NEB INH PRN (21:15)
[2020-04-25 21:44] VITALS: BP_SYST 137
[2020-04-25] MEDS: NORMAL SALINE 5 ML DISP.SYRIN IVF SCH (21:57)
[2020-04-25 23:15] VITALS: BP_SYST 118
[2020-04-25 23:26] VITALS: BP_SYST 118
[2020-04-25] MEDS ORDERED: HYDROcodone/ACETAMIN 5-325 MG TAB (NORCO/ VICODIN) PO PRN (23:45)
[2020-04-25] MEDS ORDERED: NALOXONE HCL 0.4 MG/ML AMP (NARCAN) IVP PRN (23:45)
[2020-04-25] MEDS ORDERED: BISACODYL 5 MG TABLET.DR (DULCOLAX) PO SCH (23:45)
[2020-04-25] MEDS ORDERED: MIRTAZAPINE 15 MG TABLET PO PRN (23:45)
[2020-04-26] VITALS: BP_SYST 115
[2020-04-26] MEDS: NORMAL SALINE 5 ML DISP.SYRIN IVF SCH ×3 (06:13→21:35)
[2020-04-26] MEDS: INSULIN REGULAR, HUMAN 100 UNITS/ML, 10 ML VIAL (humuLIN R) SUBCUT PRN ×2 (06:17→12:50)
[2020-04-26 07:06] LABS: BASOPHILS % (AUTO) 0.7 % (0.0-2.0); EOSINOPHILS # (AUTO) 0.2 K/uL (0.0-0.4); EOSINOPHILS % (AUTO) 5.1 % (0.0-4.0); HEMATOCRIT 28.5 % (36-54); HEMOGLOBIN 9.8 g/dL (14.0-18.0); LYMPHOCYTES # (AUTO) 0.7 K/uL (1.0-5.5); LYMPHOCYTES % (AUTO) 21.9 % (20.5-51.5); MEAN CORPUSCULAR HEMOGLOBIN 32 pg (27-31); MEAN CORPUSCULAR HGB CONC 34 % (32-36); MEAN CORPUSCULAR VOLUME 93 fL (79.0-98.0); MONOCYTES # (AUTO) 0.2 K/uL (0.0-1.0); MONOCYTES % (AUTO) 7.4 % (1.7-9.3); NEUTROPHILS % (AUTO) 64.9 % (40.0-70.0); PLATELET COUNT (AUTO) 72 K/uL (130-430); RED BLOOD CELL COUNT(AUTO) 3.06 MIL/uL (4.2-6.2); RED CELL DISTRIBUTION WIDTH 16.3 % (9.0-15.0)
[2020-04-26 07:50] LABS: ALANINE AMINOTRANSFERASE 25 U/L (12-78); ANION GAP 10 (5-15); ASPARTATE AMINOTRANSFERASE 19 U/L (10-37); CALCIUM 8.8 mg/dL (8.4-11.0); CHLORIDE 103 mmol/L (98-107); CREATININE 1.64 mg/dL (0.55-1.30); GLUCOSE 209 mg/dL (70-99); POTASSIUM 3.2 mmol/L (3.5-5.1); SODIUM SERUM 141 mmol/L (136-145); TOTAL BILIRUBIN 2.8 mg/dL (0.0-1.0); UREA NITROGEN, BLOOD 21 mg/dL (8-21)
[2020-04-26 08:00] VITALS: BP_SYST 121
[2020-04-26] MEDS: DOCUSATE SODIUM 100 MG CAPSULE PO SCH ×2 (09:00→21:00)
[2020-04-26] MEDS ORDERED: TAMSULOSIN HCL 0.4 MG CAP PO SCH (09:00)
[2020-04-26] MEDS ORDERED: FUROSEMIDE 40 MG TABLET PO SCH (09:00)
[2020-04-26] MEDS: POLYETHYLENE GLYCOL 3350, 17 GM/ POWD.PACK PO SCH (09:00)
[2020-04-26] MEDS: SENNOSIDES 8.6 MG TABLET PO SCH (09:00)
[2020-04-26] MEDS: APIXABAN 2.5 MG TABLET PO SCH ×2 (10:01→21:34)
[2020-04-26] MEDS: SPIRONOLACTONE 25 MG TABLET (ALDACTONE) PO SCH (10:02)
[2020-04-26] MEDS: MULTIVITAMINS TAB 1 TABLET PO SCH (10:03)
[2020-04-26] MEDS: glipiZIDE XL 5 MG TAB ( GLUCOTROL XL) PO SCH (10:03)
[2020-04-26] MEDS: CARVEDILOL 3.125 MG TABLET (COREG) PO SCH ×2 (10:03→21:31)
[2020-04-26] MEDS: ASCORBIC ACID 500 MG TABLET PO SCH (10:04)
[2020-04-26] MEDS: GABAPENTIN 300 MG CAPSULE PO SCH ×3 (10:04→21:31)
[2020-04-26] MEDS ORDERED: FUROSEMIDE 40 MG/4 ML VIAL IVP ONE (11:00)
[2020-04-26 13:21] VITALS: BP_SYST 122
[2020-04-26] MEDS: LORazepam 1 MG TABLET PO PRN (17:50)
[2020-04-26] MEDS: SIMVASTATIN 40 MG TABLET PO SCH (18:00)
[2020-04-26 19:13] LABS: APPEARANCE,SPUN,BODY FLUID HAZY (CLEAR); BF APPEARANCE UNSPUN CLOUDY (CLEAR); BODY FLUID SOURCE/ TYPE ASCITES; SOURCE/TYPE ,BODY FLUID PARACENTESIS
[2020-04-26 19:14] LABS: BODY FLUID COLOR ORANGE (LT YELLOW); BODY FLUID TOTAL VOLUME 3600 mL; MONOCYTES,BODY FLUID 95 %; NEUTROPHIL, BODY FLUID 5 %; RBC, BODY FLUID 4217 /uL; WBC, BODY FLUID 298 /uL
[2020-04-26 21:00] VITALS: BP_SYST 123
[2020-04-26] MEDS: TAMSULOSIN HCL 0.4 MG CAP PO SCH (21:31)
[2020-04-27 01:54] VITALS: BP_SYST 121
[2020-04-27] MEDS: NORMAL SALINE 5 ML DISP.SYRIN IVF SCH ×3 (06:33→21:19)
[2020-04-27] MEDS: INSULIN REGULAR, HUMAN 100 UNITS/ML, 10 ML VIAL (humuLIN R) SUBCUT PRN (06:38)
[2020-04-27 07:41] LABS: BASOPHILS % (AUTO) 0.6 % (0.0-2.0); EOSINOPHILS # (AUTO) 0.1 K/uL (0.0-0.4); EOSINOPHILS % (AUTO) 4.6 % (0.0-4.0); HEMATOCRIT 28.6 % (36-54); HEMOGLOBIN 9.8 g/dL (14.0-18.0); LYMPHOCYTES # (AUTO) 0.6 K/uL (1.0-5.5); MEAN CORPUSCULAR HEMOGLOBIN 32 pg (27-31); MEAN CORPUSCULAR HGB CONC 34 % (32-36); MEAN CORPUSCULAR VOLUME 93 fL (79.0-98.0); MONOCYTES # (AUTO) 0.2 K/uL (0.0-1.0); MONOCYTES % (AUTO) 7.6 % (1.7-9.3); NEUTROPHILS # (AUTO) 1.5 K/uL (1.8-7.7); NEUTROPHILS % (AUTO) 61.2 % (40.0-70.0); PLATELET COUNT (AUTO) 68 K/uL (130-430); RED BLOOD CELL COUNT(AUTO) 3.09 MIL/uL (4.2-6.2); RED CELL DISTRIBUTION WIDTH 16.6 % (9.0-15.0); WHITE BLOOD COUNT (AUTO) 2.5 K/uL (4.8-10.8)
[2020-04-27 08:00] VITALS: BP_SYST 128
[2020-04-27 08:06] LABS: ALANINE AMINOTRANSFERASE 20 U/L (12-78); ANION GAP 9 (5-15); ASPARTATE AMINOTRANSFERASE 21 U/L (10-37); CALCIUM 8.7 mg/dL (8.4-11.0); CHLORIDE 104 mmol/L (98-107); CREATININE 1.62 mg/dL (0.55-1.30); GLUCOSE 160 mg/dL (70-99); POTASSIUM 3.2 mmol/L (3.5-5.1); SODIUM SERUM 141 mmol/L (136-145); TOTAL BILIRUBIN 3.2 mg/dL (0.0-1.0); UREA NITROGEN, BLOOD 21 mg/dL (8-21)
[2020-04-27] MEDS: DOCUSATE SODIUM 100 MG CAPSULE PO SCH ×2 (09:00→21:00)
[2020-04-27] MEDS: SENNOSIDES 8.6 MG TABLET PO SCH (09:00)
[2020-04-27] MEDS: POLYETHYLENE GLYCOL 3350, 17 GM/ POWD.PACK PO SCH (09:00)
[2020-04-27] MEDS: glipiZIDE XL 5 MG TAB ( GLUCOTROL XL) PO SCH (09:40)
[2020-04-27] MEDS: GABAPENTIN 300 MG CAPSULE PO SCH ×3 (09:40→20:58)
[2020-04-27] MEDS: SPIRONOLACTONE 25 MG TABLET (ALDACTONE) PO SCH (09:40)
[2020-04-27] MEDS: ASCORBIC ACID 500 MG TABLET PO SCH (09:40)
[2020-04-27] MEDS: FUROSEMIDE 40 MG/4 ML VIAL IVP SCH (09:40)
[2020-04-27] MEDS: CARVEDILOL 3.125 MG TABLET (COREG) PO SCH ×2 (09:41→20:59)
[2020-04-27] MEDS: APIXABAN 2.5 MG TABLET PO SCH ×2 (09:43→21:03)
[2020-04-27] MEDS: MULTIVITAMINS TAB 1 TABLET PO SCH (09:48)
[2020-04-27] MEDS: LORazepam 1 MG TABLET PO PRN (09:57)
[2020-04-27 12:16] VITALS: BP_SYST 141
[2020-04-27] MEDS: POTASSIUM CHLORIDE 20 MEQ TAB.PRT.SR PO SCH ×3 (13:47→20:57)
[2020-04-27 16:18] VITALS: BP_SYST 128
[2020-04-27] MEDS: SIMVASTATIN 40 MG TABLET PO SCH (18:00)
[2020-04-27 20:00] VITALS: BP_SYST 138
[2020-04-27] MEDS: TAMSULOSIN HCL 0.4 MG CAP PO SCH (20:59)
[2020-04-27] MEDS: LIDOCAINE TOPICAL OINT 5%, 35 GM TP SCH (21:00)
[2020-04-28 00:28] VITALS: BP_SYST 127
[2020-04-28] MEDS: NORMAL SALINE 5 ML DISP.SYRIN IVF SCH ×3 (06:05→20:53)
[2020-04-28 07:58] VITALS: BP_SYST 127
[2020-04-28 08:00] VITALS: BP_SYST 128
[2020-04-28] MEDS: DOCUSATE SODIUM 100 MG CAPSULE PO SCH ×2 (09:00→20:46)
[2020-04-28] MEDS: LIDOCAINE TOPICAL OINT 5%, 35 GM TP SCH ×2 (09:00→21:00)
[2020-04-28] MEDS: ASCORBIC ACID 500 MG TABLET PO SCH (09:11)
[2020-04-28] MEDS: GABAPENTIN 300 MG CAPSULE PO SCH ×3 (09:11→20:46)
[2020-04-28] MEDS: FUROSEMIDE 40 MG/4 ML VIAL IVP SCH (09:11)
[2020-04-28] MEDS: SENNOSIDES 8.6 MG TABLET PO SCH (09:11)
[2020-04-28] MEDS: glipiZIDE XL 5 MG TAB ( GLUCOTROL XL) PO SCH (09:11)
[2020-04-28] MEDS: MULTIVITAMINS TAB 1 TABLET PO SCH (09:11)
[2020-04-28] MEDS: POLYETHYLENE GLYCOL 3350, 17 GM/ POWD.PACK PO SCH (09:12)
[2020-04-28] MEDS: CARVEDILOL 3.125 MG TABLET (COREG) PO SCH ×2 (09:12→20:46)
[2020-04-28] MEDS: SPIRONOLACTONE 25 MG TABLET (ALDACTONE) PO SCH (09:12)
[2020-04-28] MEDS: APIXABAN 2.5 MG TABLET PO SCH ×2 (09:14→20:51)
[2020-04-28] MEDS: LORazepam 1 MG TABLET PO PRN (10:58)
[2020-04-28 11:30] VITALS: BP_SYST 122
[2020-04-28 16:00] VITALS: BP_SYST 131
[2020-04-28] MEDS: INSULIN REGULAR, HUMAN 100 UNITS/ML, 10 ML VIAL (humuLIN R) SUBCUT PRN ×2 (16:35→20:52)
[2020-04-28] MEDS: SIMVASTATIN 40 MG TABLET PO SCH (17:54)
[2020-04-28 19:33] VITALS: BP_SYST 127
[2020-04-28] MEDS: TAMSULOSIN HCL 0.4 MG CAP PO SCH (20:46)
[2020-04-29 00:05] VITALS: BP_SYST 129
[2020-04-29] MEDS: NORMAL SALINE 5 ML DISP.SYRIN IVF SCH ×3 (06:07→20:55)
[2020-04-29 06:57] LABS: BASOPHILS % (AUTO) 0.5 % (0.0-2.0); EOSINOPHILS # (AUTO) 0.1 K/uL (0.0-0.4); EOSINOPHILS % (AUTO) 4.4 % (0.0-4.0); HEMATOCRIT 30.4 % (36-54); HEMOGLOBIN 10.3 g/dL (14.0-18.0); LYMPHOCYTES # (AUTO) 0.7 K/uL (1.0-5.5); LYMPHOCYTES % (AUTO) 25.5 % (20.5-51.5); MEAN CORPUSCULAR HEMOGLOBIN 32 pg (27-31); MEAN CORPUSCULAR HGB CONC 34 % (32-36); MEAN CORPUSCULAR VOLUME 94 fL (79.0-98.0); MONOCYTES # (AUTO) 0.2 K/uL (0.0-1.0); MONOCYTES % (AUTO) 8.2 % (1.7-9.3); NEUTROPHILS # (AUTO) 1.7 K/uL (1.8-7.7); NEUTROPHILS % (AUTO) 61.4 % (40.0-70.0); PLATELET COUNT (AUTO) 72 K/uL (130-430); RED BLOOD CELL COUNT(AUTO) 3.24 MIL/uL (4.2-6.2); RED CELL DISTRIBUTION WIDTH 16.2 % (9.0-15.0); WHITE BLOOD COUNT (AUTO) 2.8 K/uL (4.8-10.8)
[2020-04-29 07:24] LABS: ALANINE AMINOTRANSFERASE 13 U/L (12-78); ANION GAP 8 (5-15); ASPARTATE AMINOTRANSFERASE 19 U/L (10-37); CHLORIDE 105 mmol/L (98-107); CREATININE 1.68 mg/dL (0.55-1.30); GLUCOSE 106 mg/dL (70-99); POTASSIUM 3.3 mmol/L (3.5-5.1); SODIUM SERUM 142 mmol/L (136-145); TOTAL BILIRUBIN 3.8 mg/dL (0.0-1.0); UREA NITROGEN, BLOOD 23 mg/dL (8-21)
[2020-04-29 08:00] VITALS: BP_SYST 117
[2020-04-29] MEDS: POLYETHYLENE GLYCOL 3350, 17 GM/ POWD.PACK PO SCH (08:27)
[2020-04-29] MEDS: GABAPENTIN 300 MG CAPSULE PO SCH ×3 (08:27→20:53)
[2020-04-29] MEDS: DOCUSATE SODIUM 100 MG CAPSULE PO SCH ×2 (08:27→20:53)
[2020-04-29] MEDS: ASCORBIC ACID 500 MG TABLET PO SCH (08:27)
[2020-04-29] MEDS: SENNOSIDES 8.6 MG TABLET PO SCH (08:27)
[2020-04-29] MEDS: SPIRONOLACTONE 25 MG TABLET (ALDACTONE) PO SCH (08:28)
[2020-04-29] MEDS: glipiZIDE XL 5 MG TAB ( GLUCOTROL XL) PO SCH (08:28)
[2020-04-29] MEDS: CARVEDILOL 3.125 MG TABLET (COREG) PO SCH ×2 (08:29→20:54)
[2020-04-29] MEDS: FUROSEMIDE 40 MG/4 ML VIAL IVP SCH (08:29)
[2020-04-29] MEDS: APIXABAN 2.5 MG TABLET PO SCH ×2 (08:30→20:51)
[2020-04-29] MEDS: LIDOCAINE TOPICAL OINT 5%, 35 GM TP SCH ×2 (09:00→20:57)
[2020-04-29] MEDS: MULTIVITAMINS TAB 1 TABLET PO SCH (09:44)
[2020-04-29] MEDS ORDERED: POTASSIUM CHLORIDE 20 MEQ/PKT PACKET PO ONE (10:00)
[2020-04-29] MEDS: INSULIN REGULAR, HUMAN 100 UNITS/ML, 10 ML VIAL (humuLIN R) SUBCUT PRN ×2 (11:13→20:50)
[2020-04-29 12:00] VITALS: BP_SYST 120
[2020-04-29] MEDS: SIMVASTATIN 40 MG TABLET PO SCH (18:04)
[2020-04-29 20:00] VITALS: BP_SYST 128
[2020-04-29] MEDS: TAMSULOSIN HCL 0.4 MG CAP PO SCH (20:54)
[2020-04-29] MEDS: LORazepam 1 MG TABLET PO PRN (21:15)
[2020-04-30] VITALS: BP_SYST 130
[2020-04-30] MEDS: NORMAL SALINE 5 ML DISP.SYRIN IVF SCH ×2 (06:20→14:57)
[2020-04-30 08:00] VITALS: BP_SYST 143
[2020-04-30] MEDS: LIDOCAINE TOPICAL OINT 5%, 35 GM TP SCH (09:00)
[2020-04-30] MEDS: glipiZIDE XL 5 MG TAB ( GLUCOTROL XL) PO SCH (10:07)
[2020-04-30] MEDS: FUROSEMIDE 40 MG/4 ML VIAL IVP SCH (10:07)
[2020-04-30] MEDS: MULTIVITAMINS TAB 1 TABLET PO SCH (10:08)
[2020-04-30] MEDS: GABAPENTIN 300 MG CAPSULE PO SCH ×2 (10:08→15:13)
[2020-04-30] MEDS: CARVEDILOL 3.125 MG TABLET (COREG) PO SCH (10:08)
[2020-04-30] MEDS: SENNOSIDES 8.6 MG TABLET PO SCH (10:08)
[2020-04-30] MEDS: ASCORBIC ACID 500 MG TABLET PO SCH (10:09)
[2020-04-30] MEDS: POLYETHYLENE GLYCOL 3350, 17 GM/ POWD.PACK PO SCH (10:09)
[2020-04-30] MEDS: SPIRONOLACTONE 25 MG TABLET (ALDACTONE) PO SCH (10:09)
[2020-04-30] MEDS: DOCUSATE SODIUM 100 MG CAPSULE PO SCH (10:09)
[2020-04-30] MEDS: APIXABAN 2.5 MG TABLET PO SCH (10:10)
[2020-04-30 12:19] VITALS: BP_SYST 135
[2020-04-30 16:12] VITALS: BP_SYST 133
[2020-04-30 17:06] VITALS: BP_SYST 133
[2020-04-30] MEDS: SIMVASTATIN 40 MG TABLET PO SCH (18:12)
[2020-04-30] MEDS: INSULIN REGULAR, HUMAN 100 UNITS/ML, 10 ML VIAL (humuLIN R) SUBCUT PRN (18:14)
== END 2020-04-30 20:45 | disposition home health service (06) | DRG 291 ==
LOC: SED 16:36 → STU 21:02
PROVIDERS: ADMIT Internal Medicine Hospice and Palliative Medicine; ATTEND Internal Medicine Hospice and Palliative Medicine
PROC: 0W9G3ZZ Drainage of Peritoneal Cavity, Percutaneous Approach (ICD-10-PCS; principal; 2020-04-26)
DX: I13.0 Hypertensive heart and chronic kidney disease with heart failure and stage 1 through stage 4 chronic kidney disease, or unspecified chronic kidney disease (principal); I50.43 Acute on chronic combined systolic (congestive) and diastolic (congestive) heart failure; R18.8 Other ascites; I48.20 Chronic atrial fibrillation, unspecified; E46 Unspecified protein-calorie malnutrition; N39.0 Urinary tract infection, site not specified; N40.0 Benign prostatic hyperplasia without lower urinary tract symptoms; I10 Essential (primary) hypertension; G89.29 Other chronic pain; M54.9 Dorsalgia, unspecified; E11.40 Type 2 diabetes mellitus with diabetic neuropathy, unspecified; E88.09 Other disorders of plasma-protein metabolism, not elsewhere classified; D72.819 Decreased white blood cell count, unspecified; Z20.822 Contact with and (suspected) exposure to COVID-19; I44.7 Left bundle-branch block, unspecified; N18.9 Chronic kidney disease, unspecified; E11.22 Type 2 diabetes mellitus with diabetic chronic kidney disease; E80.6 Other disorders of bilirubin metabolism; E78.5 Hyperlipidemia, unspecified; D64.9 Anemia, unspecified; Z88.8 Allergy status to other drugs, medicaments and biological substances; Z79.01 Long term (current) use of anticoagulants; Z85.46 Personal history of malignant neoplasm of prostate; Z95.2 Presence of prosthetic heart valve; Z68.32 Body mass index [BMI] 32.0-32.9, adult
CPT/HCPCS: 36415; 36600; 49083; 71045; 76376; 76700-TC; 80053; 81000-TC; 82042; 82803-TC; 82947-TC; 82962; 83880; 84157-TC; 84484; 85025; 85379; 85610-TC; 85730-TC; 87070-TC; 87081; 89051-TC; 89060-TC; 93005; 97163; C1729; G0378; J1815; J1940